=== PATIENT | male | born 1965 | race Caucasian/White ===

== ENCOUNTER 2016-11-18 18:57 | Emergency (ER) | payer OTHER ==
[2016-11-18 19:12] VITALS: TEMP 98.6; BMI 26.6
--- NOTE | 2016-11-18 19:17 | PDOC ---
History of Present Illness - General Chief Complaint: Alcohol intoxication Stated Complaint: INTOXICATED Time Seen by Provider: 11/18/16 19:05 History Source: Patient Exam Limitations: Intoxication - History of Present Illness Initial Comments: 11/18/16 19:12 This is a 51 yo man without significant medical history who presents today s/p trip and fall after drinking 1 pint of José vodka. He has abrasions to b/l knees and thighs. He also has a loose incisor which he states was present prior to fall and is due to be repaired 11/19. He denies head trauma, chest pain, shortness of breath, dizziness, nausea or vomiting. He is unsure of his last tetanus shot. He states he does not usually drink ETOH. He has been taking Percocet as prescribed for dental pain until he gets teeth repaired tomorrow. Timing/Duration: 1/2 hour Severity: mild Associated Symptoms: reports: denies symptoms Past History - Travel Traveled outside of the country in the last 30 days: No Close contact w/someone who was outside of country & ill: No - Past Medical History Allergies/Adverse Reactions: Allergies Allergy/AdvReac Type Severity Reaction Status Date / Time Fish Containing Products Allergy Verified 02/12/15 10:16 SEAFOOD Allergy Rash Uncoded 02/12/15 10:16 Home Medications: Ambulatory Orders Albuterol 0.083% Nebulizer Lay [Ventolin 0.083% Nebulizer Soln -] 1 neb NEB Q4H PRN #20 vial 01/22/15 Oxycodone HCl/Acetaminophen [Percocet 5-325 mg Tablet] 1 tab PO Q6H 11/18/16 Asthma: Yes Thyroid Disease: No - Psycho/Social/Smoking Cessation Hx Anxiety: No Suicidal Ideation: No Smoking History: Current every day smoker Number of Cigarettes Smoked Daily: 20 Information on smoking cessation initiated: No 'Breaking Loose' booklet given: 01/22/15 Hx Alcohol Use: No Drug/Substance Use Hx: No Substance Use Type: None Review of Systems - Review of Systems Able to Perform ROS?: Yes Is the patient limited Welsh proficient: No Constitutional: No: Symptoms Reported HEENTM: Yes: Mouth Pain (pre-existing due for surgery 11/19) Respiratory: No: Symptoms reported Cardiac (ROS): No: Symptoms Reported ABD/GI: No: Symptoms Reported : No: Symptoms Reported Musculoskeletal: Yes: Joint Pain (bilateral knees) Integumentary: Yes: Other (abrasions to bilateral knees) Neurological: No: Symptoms reported *Physical Exam - Vital Signs Last Vital Signs Temp Pulse Resp BP Pulse Ox 98.6 F 122 H 18 134/81 100 11/18/16 18:57 11/18/16 18:57 11/18/16 18:57 11/18/16 18:57 11/18/16 18:57 - Physical Exam General Appearance: Yes: Appropriately Dressed. No: Apparent Distress HEENT: positive: FAITH, Normal ENT Inspection, Normal Voice, TMs Normal, Pharynx Normal, Other (tooth #9 loose and #10 with caries present (pre-existing and due for repair 11/19)) Neck: positive: Trachea midline, Supple Respiratory/Chest: positive: Lungs Clear, Normal Breath Sounds. negative: Respiratory Distress, Accessory Muscle Use Cardiovascular: positive: Regular Rhythm, Regular Rate, S1, S2. negative: Edema , JVD, Murmur Gastrointestinal/Abdominal: positive: Normal Bowel Sounds, Soft. negative: Tender, Organomegaly Musculoskeletal: positive: Normal Inspection. negative: CVA Tenderness Extremity: positive: Normal Capillary Refill, Other (abrasions to bilateral knees) Integumentary: positive: Normal Color, Dry, Warm, Other (abrasions to bilateral knees) Neurologic: positive: impregnating helper II-XII NML intact, Fully Oriented, Alert, Normal Mood/ Affect, Normal Response, Motor Strength 5/5 Heart Score/ECG Review - ECG Intrepretation Rhythm: Regular Rhythm - [place]: Normal - ECG Impressions Tachycardia: Sinus Medical Decision Making - Medical Decision Making 11/18/16 19:21 A/P: This is a 51 yo man without significant medical history who presents today s/p trip and fall after drinking 1 pint of José vodka. He has abrasions to b/l knees and thighs. He also has a loose incisor which he states was present prior to fall and is due to be repaired 11/19. He denies head trauma, chest pain, shortness of breath, dizziness, nausea or vomiting. He is unsure of his last tetanus shot. He states he does not usually drink ETOH. He has been taking Percocet as prescribed for dental pain until he gets teeth repaired tomorrow. - tetanus shot - metabolize ETOH 11/18/16 21:19 Patient feels better. HR- 91. I discussed the physical exam findings, ancillary test results and final diagnoses with the patient. I answered all of the patient 's questions. The patient was satisfied with the care received and felt comfortable with the discharge plan and treatment plan. The patient will call his doctor within 24 hours to arrange follow-up and will return to the Emergency Department with any new, persistent or worsening symptoms. Will discharge to home via taxi. *DC/Admit/Observation/Transfer Diagnosis at time of Disposition: Alcohol intake above recommended sensible limits without complication - Discharge Dispostion Disposition: HOME Condition at time of disposition: Improved Admit: No - Referrals Referrals: Elkin Siddiqi MD [Staff Physician] - - Patient Instructions Additional Instructions: Avoid alcohol. Drink plenty of non-alcoholic fluids. Keep your appointment with oral surgeon tomorrow. Eat a well balanced diet. Return to ER for any nausea, vomiting, shortness of breath or any other concerns.
[2016-11-18] MEDS ORDERED: DIPHTH,PERTUSS(ACELL),TET 0.5 ML DISP.SYRIN IM ONE (19:25)
--- NOTE | 2016-11-18 19:52 | PDOC ---
*Physical Exam - Vital Signs Last Vital Signs Temp Pulse Resp BP Pulse Ox 98.6 F 122 H 18 134/81 100 11/18/16 18:57 11/18/16 18:57 11/18/16 18:57 11/18/16 18:57 11/18/16 18:57 Medical Decision Making - Medical Decision Making 11/18/16 19:51 agree with care from DIRECTORY OPERATOR Fritz *DC/Admit/Observation/Transfer Diagnosis at time of Disposition: Alcohol intake above recommended sensible limits without complication - Discharge Dispostion Disposition: HOME Condition at time of disposition: Improved - Referrals Referrals: Elkin Siddiqi MD [Staff Physician] - - Patient Instructions Additional Instructions: Avoid alcohol. Drink plenty of non-alcoholic fluids. Keep your appointment with oral surgeon tomorrow. Eat a well balanced diet. Return to ER for any nausea, vomiting, shortness of breath or any other concerns.
[2016-11-18 21:49] VITALS: BP 118/84; PULSE 94
--- NOTE | 2016-11-25 14:55 | EKG ---
Test Reason : Blood Pressure : / mmHG Vent. Rate : 102 BPM Atrial Rate : 102 BPM P-R Int : 136 ms QRS Dur : 090 ms QT Int : 350 ms P-R-T Axes : 011 085 001 degrees QTc Int : 456 ms SINUS TACHYCARDIA OTHERWISE NORMAL ECG NO PREVIOUS ECGS AVAILABLE Confirmed by MELVA ARAIZA MD ([id number]) on 11/25/2016 2:55:24 PM Referred By: Confirmed By:MELVA ARAIZA MD
== END 2016-11-18 21:49 | disposition home or self-care (01) ==
LOC: JER 18:57
PROC: 3E0234Z Introduction of Serum, Toxoid and Vaccine into Muscle, Percutaneous Approach (ICD-10-PCS; principal; 2016-11-18)
DX: F10.120 Alcohol abuse with intoxication, uncomplicated (principal); F17.210 Nicotine dependence, cigarettes, uncomplicated
CPT/HCPCS: 90471; 90715; 93005; 93010; 99282-25